=== PATIENT | male | born 1970 | race Caucasian/White ===

== ENCOUNTER 2020-06-21 03:46 | Observation (INO) | payer BC, SELFPAY ==
[2020-06-21] VITALS (8 sets, daily range): BP systolic 127–154; BP diastolic 70–93; PULSE 72–122; RESP 16–18; TEMP 36.7–37.1; O2SAT 95–99; BMI 20.2
[2020-06-21 04:40] LABS: Basophils # 0.1 10^3/uL (0.0-0.1); Basophils % 0.5 %; Eosinophils % 0.4 %; Hematocrit 52.7 % (42.0-52.0); Hemoglobin 17.5 g/dL (11.7-16.6); Lymphocytes # 2.1 10^3/uL (0.8-4.8); Mean Corpuscular HGB Conc 33.2 g/dL (30.0-36.0); Mean Corpuscular Hemoglobin 31.5 pg (28.0-34.0); Mean Platelet Volume 9.8 fL (7.4-10.4); Monocytes # 0.5 10^3/uL (0.2-0.9); Monocytes % 4.4 %; Neutrophils # 7.63 10^3/uL (1.8-7.7); Neutrophils % 74.1 %; Nucleated Red Blood Cells % 0 %; Platelet Count 310 10^3/cmm (130-400); Red Blood Count 5.55 10^6/uL (4.1-5.3); Red Cell Distribution Width 12.7 % (12.1-15.1); White Blood Count 10.3 10^3/uL (4.0-10.0)
[2020-06-21 04:48] LABS: Add Urine Microscopic? YES; Bilirubin Urine Neg (NEGATIVE); Blood Urine 2+ (Negative); Glucose Urine UA Norm (Normal); Ketones Urine 1+ (Negative); Leukocyte Esterase Urine Trace (Negative); Nitrate Urine Negative (Negative); Protein Urine 2+ (Negative); Specific Gravity, Urine 1.015 (1.005-1.030); Urine Appearance Clear (CLEAR); Urine Color Yellow (Yellow); Urobilinogen Urine Norm (Negative); pH Urine 5 (5-7)
[2020-06-21 04:51] LABS: Amphetamines Screen Urine Negative (Negative); Barbiturates Screen Urine Negative (Negative); Benzodiazepines Screen Urine Positive (Negative); Cocaine Screen Urine Negative (Negative); Opiate Screen Urine Negative (Negative); PCP Screen Urine Negative (Negative); THC Screen Urine Negative (Negative)
[2020-06-21 04:54] LABS: RBC Urine 0-4 /hpf (0-2); Squamous Epithelial Cell Urine 0-4 (0-5); WBC Urine 0-4 /hpf (0-5)
[2020-06-21 04:55] LABS: Add Urine Culture? No; Bacteria Urine TRACE; Hyaline Casts Urine 0-4; Mucus Urine TRACE
[2020-06-21 04:58] LABS: Alanine Aminotransferase 60 U/L (0-41); Albumin Level 5.2 g/dL (3.5-5.2); Alcohol Level 233 mg/dL (0-10); Alkaline Phosphatase 105 IU/L (40-130); Anion Gap 20.4 (5-19); Aspartate Amino Transferase 38 U/L (0-40); Blood Urea Nitrogen 16 mg/dL (6-20); Calcium 9.8 mg/dL (8.5-10.5); Carbon Dioxide 22 mmol/L (22-29); Chloride 100 mmol/L (98-107); Globulin 3.4 g/dL (1.3-4.6); Glomerular Filtration Rate 71.1 mL/min (90-130); Glucose 125 mg/dL (65-115); Osmolality Calculated 284 mOsm/kg (285-295); Potassium 4.4 mmol/L (3.5-5.1); Sodium 138 mmol/L (136-145); Total Bilirubin 0.3 mg/dL (0.15-1.2); Total Protein 8.6 g/dL (6.6-8.7)
--- NOTE | 2020-06-21 05:14 | XR_ITS ---
WS: [id number] EXAM: LEFT HAND: 3 VIEWS DATE OF EXAMINATION: 06/21/2020, 0544 hours COMPARISON: None. HISTORY: Patient is 50 years old with swelling the left hand. No known injury. FINDINGS: Bone density is normal in appearance. There is a fracture involving the base of the second metacarpal bone with suspected intra-articular involvement. No dislocation. Dorsal soft tissue swelling seen ov er the wrist. XR/XR hand LT min 3V* [id number] IMPRESSION: Fracture involving the base of the second metacarpal bone with suspected intra- articular extension. No dislocation at the carpometacarpal articulation. Dorsal soft tissue swelling.
[2020-06-21 05:19] LABS: Acetaminophen < 5.0 ug/mL (10-30); Salicylate < 0.3 mg/dL (3-10)
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
--- NOTE | 2020-06-21 06:42 | PC.NURSE ---
requesting hold on meds
--- NOTE | 2020-06-21 08:16 | P.HP_ITS ---
Providers/Chief Complaint Admitting Physician: Leroy Boo MD Chief Complaint: si/hi HPI [facility] History of Present Illness Catrachito Moran is a 50 year old male who presented to the emergency room via EMS and the [facility], after an episode that occurred after he and his family had been drinking, earlier in the day. He had gotten belligerent with his family members. According to the deputies, he threatened to assault his , and told the and the [employer] that he wanted to and she should just get a gun and kill him. He presented to the emergency room endorsing that he has no recollection of those issues. There was recently a reported medication change, according to his . He has a history of depression and anxiety but no previous admissions. He was intoxicated with an alcohol level in the 230?s. At some point, he had been swinging in the direction of his , and at inanimate objects, and broke a left metacarpal. He was admitted to the neuropsychiatric unit for definitive treatment of those issues. He reported that he has no recollection of what occurred but then, at times, that assertion was questionable because he would throw in things like he was forced into the ambulance, and would deny that certain things happened, in one breath, but then would say he has no recollection in another breath. He was very evasive in his answers and had a very lawyerly way of approaching things, speaking about ?allegedly this.? At times I would identify for him that something occurred, and he would say that he is not saying that it did or didn?t occur, at which time I would have to correct him and say that I am not asking you if it occurred, I am giving you an accounting of what people, who were sober, said occurred. He was very much demanding about leaving, but then when it was explained to him that we were evaluating to see if he would be leaving at all, he was very demanding about when that decision would be made. His was present in the waiting room; it was explained to him that to get a sense of what we were going to do, we would need to get some collateral information from her. His reports that he has had a shorter fuse and lower frustration tolerance, over the past weeks. She reports that they are in town to get her father?s affairs in order. Her father lives with them, and her mother had about a year ago. 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 She reports that they had split about two bottles of wine, between four of them, being her, her sister, her , and her father. But she noted that her father had only one glass out of those bottles. She reports that she had gone to bed and her sister and her , who are reportedly close, continued the conversation while she was in bed trying to wind down and was just kind of playing on her phone. Her sister noted that she was going to bed but that her was still kind of chattering, at which time she reached out to him and said why don?t you come to bed. She reports that as people were making the move to go to bed, she had gotten up and was moving through the room when he started acting very strange. At one point, she reports that he made a comment about her sister?s breasts, which he has never done anything like before, and her sister said that he had not done anything like that when they were sitting alone or any other time, in their lives. He started saying that their eyes were weird and asking them what was wrong with them. Then, at some point, he attempted to swing at his , maybe on multiple occasions. At one point, they had both grabbed him, the around the arm and the [id number] around his body, she reports, and they called for their father. As this continued she asked for her father to call EMS. At one point, the patient was on the ground, pounding the ground, walking on all fours, and saying bizarre things. The police reportedly arrived and this continued, and it was almost like she felt he got an awareness about what was going on and started saying the things about killing himself and having her kill him, and issues with getting a gun and doing something. She reports that there are guns on the property, but they are locked up in a safe; and the building that the guns are in is about a half mile from the main house and it is also locked up, and her dad is the only one that has a coker. The patient gave no real explanation for what happened and continued to deny that anything happened other than him being forcibly brought here and him not understating that. The had some concerns about this recent behavior change, and then this episode, and also wanting to talk to him about what happened and being fearful that if he just came back home that it could be a real problem if they did not have a chance to process it. We reviewed his medications and discussed the risks, benefits, and alternatives of continuing them. We also reviewed the fact that they were saying that he was on Ativan, but we were unable to identity dosing frequency etc. and the possibility of those things combined causing this behavior. He denied any increase in his baseline symptoms, that he has been in treatment for, for some time. He denied suicidal or homicidal thoughts, or anything of that nature. PSYCHIATRIC HISTORY: As above. He has had treatment for depression and anxiety for over twenty years, going back to treatment for depression and anxiety back when he was in his early twenties. He endorsed off and on treatment with different providers. He reported recent initiation of Ativan for overly anxious periods. He denies any inpatient hospitalizations and reports that, many times, his mental health treatment has been through primary care physicians. He reports that he made an appointment that it took him about a year to get. He would not really go into why he wanted the appointment then, only endorsing that at the time the appointment came the only reason he kept the appointment, with the psychiatrist, was that he waited so long to get the appointment. And now he has been seeing that person for about a year and a half. SUBSTANCE ABUSE HISTORY: He denies significant smoking behavior. He does endorse drinking alcohol regularly but not daily and not in large amounts, but he was vague about that. H e denies marijuana, cocaine, methamphetamine, or opiate use, and he denies benzodiazepine use that is not in keeping with the prescription. He denies ever being in a drug rehabilitation. He denies ever having a DUI. FAMILY HISTORY: He reports that both his parents have been hospitalized and been in treatment for mental health issues, but he denies addiction issues. He was unclear about the suicide attempts or completions. DEVELOPMENTAL HISTORY: He denies any issues with his or delivery. He reportedly learned to walk and talk and met developmental milestones on time. He denied speech therapy, learning support, emotional support, or special education classes, and it was [place] critical for him to have me understand that he was in gifted classes and he was a gifted student. PSYCHOSOCIAL HISTORY: He reports that his mother and father were together when he was born, and they stayed together until he was in his adolescence. He endorses that he was the only child they had to together, and he does have a half-sibling. He endorses that his childhood was fine; he denies any emotional, physical, or sexual abuse. He endorsed graduating from high school and going to college. He endorses being a heterosexual, with his longest relationship being the approximately sixteen years he has been with his . He has been twice and once. He has no biological children. He has never been in the . He has no significant christianity belief system. He endorses that the longest job he had was about eight years. 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 He reports he lives in a house with his and his [id number]. LEGAL HISTORY: He has never been to half-way and denies any significant legal problems. MEDICAL HISTORY: He has had back surgery on his cervical spine. Meds NPU Home Medications Medication Instructions Recorded Confirmed Last Taken Type bupropion HCl 300 mg PO DAILY 06/21/20 06/21/20 06/20/20 08:00 History 300 mg paroxetine HCl 40 mg PO DAILY 06/21/20 06/21/20 06/21/20 08:00 History 40 mg trazodone 100 mg PO QPM PRN 06/21/20 06/21/20 06/17/20 21:00 History 100 mg Allergies Allergy/AdvReac Type Severity Reaction Status Date / Time No Known Allergies Allergy Verified 06/21/20 03:59 Mental Status Exam MSE Comments: This is an overweight versus obese, white male, with limited dress, grooming, and eye contact. No abnormal movements, except for some psychomotor agitation. Semi-cooperative with exam in no acute distress. Speech was normal rate and volume. Mood described as irritated; affect congruent. Thought process, organized. Thought content: patient denied any suicidal or homicidal ideation, there were no delusions reported or noted, patient denied any auditory or visual hallucinations. Attention, concentration, and memory appear intact but none were formally tested. He is alert and oriented times three. Insight and judgment are limited. Impulse control is limited. Vitals/I&O/Wt Last Vital Signs Temp 98.2 F 06/21/20 13:45 Pulse 72 06/21/20 13:45 Resp 18 06/21/20 13:45 BP 154/70 06/21/20 13:45 Pulse Ox 99 06/21/20 13:45 Weight last 48 hrs Weight 65.771 kg Data NPU : 06/21/20 04:30 06/21/20 04:30 A&P Assessment and plan (1) Suicidal thoughts: Status: Acute (2) Major depression: Status: Acute (3) Anxiety: Status: Acute (4) Alcohol abuse: Status: Acute (5) Alcohol intoxication: Status: Acute (6) Metacarpal bone fracture: Status: Acute Additional A&P Information This is a 50 year old, white male, with a long history of anxiety, depression, and some history of alcohol use that has, at times, been excessive per his ?s report, but that he has recently been better at managing, who presents after being intoxicated and getting violent, and presents on a 96-hour hold. Continue current medication, including the CIWA protocol. Encourage individual, group, and milieu therapy. Continue q-15 minute checks for safety. Recommend sober living treatment at the highest level of care to which he is willing to commit. Involuntary Hold Information 96 Hour Hold: 96 Hour Involuntary Admission: Yes 96 Hour Hold Ending Date: 06/27/20 96 Hour Hold Ending Time: 00:01 Attestations NPU Medical Necessity Statement*: Inpatient hospitalization is medically necessary and the clinically appropriate intervention at this time. We will monitor medications and make adjustments as indicated. Patient will be in the hospital for observation purposes initially; we will decide whether to keep him tomorrow based on conversation with his after she visits him during visitation. Possible discharge tomorrow, but depending on how he is doing and collateral information, we could change him to inpatient status. Coding Level of Care Code Acute Paving Machine Operator for Naz Henriquez Diagnoses Suicidal thoughts R45.851 Major depression F32.9 Anxiety F41.9 Alcohol abuse F10.10 Alcohol intoxication F10.929 Metacarpal bone fracture S60.015F
--- NOTE | 2020-06-21 10:10 | PC.NURSE ---
1008- Dr Boo called regarding pt agitation during transport to [facility]. Pt states he is not staying, no one told him he would be admitted. Pt wants to leave AMA. Per Dr Boo, he will place pt on 96hr hold.
--- NOTE | 2020-06-21 10:19 | PC.NURSE ---
At 1000 when attempting to take patient to admitting unit after Psychiatrist Rajeev spoke to patient earlier about admission and report was called to the admitting unit. Patient stated no one informed him of being admitted, that he was not staying, and wanted to leave. Rajeev was called pertaining situation and stated he would place a 96 hour hold on the patient
[2020-06-21] MEDS: PARoxetine 20 mg Tablet 40 MG PO (11:58)
[2020-06-21] MEDS: buPROPion XL (24 HR) 300 mg Tablet PO (11:58)
--- NOTE | 2020-06-21 21:27 | PC.NURSE ---
Left wrist splint is intact. Fingers are warm with adequate circulation.
[2020-06-22 06:00] VITALS: BP 106/63; PULSE 70; RESP 16; TEMP 36.6; O2SAT 96
[2020-06-22] MEDS: PARoxetine 20 mg Tablet 40 MG PO (09:36)
[2020-06-22] MEDS: buPROPion XL (24 HR) 300 mg Tablet PO (09:36)
--- NOTE | 2020-06-22 11:42 | PM.NDC ---
Diagnoses at Discharge Discharge Diagnosis (1) Suicidal thoughts: Status: Resolved (2) Major depression: Status: Acute (3) Anxiety: Status: Acute (4) Alcohol abuse: Status: Acute (5) Alcohol intoxication: Status: Resolved (6) Metacarpal bone fracture: Status: Acute Reason for Visit Reason for Visit: si/hi Brief History: History of Present Illness Catrachito Moran is a 50 year old male who [facility] after an episode that occurred after he and his family had been drinking, earlier in the day. He had gotten belligerent with his family members. According to the deputies, he threatened to assault his , and told the and the Garbage Worker that he wanted to and she should just get a gun and kill him. He presented to the emergency room endorsing that he has no recollection of those issues. There was recently a reported medication change, according to his . He has a history of depression and anxiety but no previous admissions. He was intoxicated with an alcohol level in the 230?s. At some point, he had been swinging in the direction of his , and at inanimate objects, and broke a left metacarpal. He was admitted to the neuropsychiatric unit for definitive treatment of those issues. He reported that he has no recollection of what occurred but then, at times, that assertion was questionable because he would throw in things like he was forced into the ambulance, and would deny that certain things happened, in one breath, but then would say he has no recollection in another breath. He was very evasive in his answers and had a very lawyerly way of approaching things, speaking about ?allegedly this.? At times I would identify for him that something occurred, and he would say that he is not saying that it did or didn?t occur, at which time I would have to correct him and say that I am not asking you if it occurred, I am giving you an accounting of what people, who were sober, said occurred. He was very much demanding about leaving, but then when it was explained to him that we were evaluating to see if he would be leaving at all, he was very demanding about when that decision would be made. His was present in the waiting room; it was explained to him that to get a sense of what we were going to do, we would need to get some collateral information from her. His reports that he has had a shorter fuse and lower frustration tolerance, over the past weeks. She reports that they are in town to get her father?s affairs in order. Her father lives with them, and her mother had about a year ago. 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 She reports that they had split about two bottles of wine, between four of them, being her, her sister, her , and her father. But she noted that her father had only one glass out of those bottles. She reports that she had gone to bed and her sister and her , who are reportedly close, continued the conversation while she was in bed trying to wind down and was just kind of playing on her phone. Her sister noted that she was going to bed but that her was still kind of chattering, at which time she reached out to him and said why don?t you come to bed. She reports that as people were making the move to go to bed, she had gotten up and was moving through the room when he started acting very strange. At one point, she reports that he made a comment about her sister?s breasts, which he has never done anything like before, and her sister said that he had not done anything like that when they were sitting alone or any other time, in their lives. He started saying that their eyes were weird and asking them what was wrong with them. Then, at some point, he attempted to swing at his , maybe on multiple occasions. At one point, they had both grabbed him, the around the arm and the [id number] around his body, she reports, and they called for their father. As this continued she asked for her father to call EMS. At one point, the patient was on the ground, pounding the ground, walking on all fours, and saying bizarre things. The police reportedly arrived and this continued, and it was almost like she felt he got an awareness about what was going on and started saying the things about killing himself and having her kill him, and issues with getting a gun and doing something. She reports that there are guns on the property, but they are locked up in a safe; and the building that the guns are in is about a half mile from the main house and it is also locked up, and her dad is the only one that has a coker. The patient gave no real explanation for what happened and continued to deny that anything happened other than him being forcibly brought here and him not understating that. The had some concerns about this recent behavior change, and then this episode, and also wanting to talk to him about what happened and being fearful that if he just came back home that it could be a real problem if they did not have a chance to process it. We reviewed his medications and discussed the risks, benefits, and alternatives of continuing them. We also reviewed the fact that they were saying that he was on Ativan, but we were unable to identity dosing frequency etc. and the possibility of those things combined causing this behavior. He denied any increase in his baseline symptoms, that he has been in treatment for, for some time. He denied suicidal or homicidal thoughts, or anything of that nature. PSYCHIATRIC HISTORY: As above. He has had treatment for depression and anxiety for over twenty years, going back to treatment for depression and anxiety back when he was in his early twenties. He endorsed off and on treatment with different providers. He reported recent initiation of Ativan for overly anxious periods. He denies any inpatient hospitalizations and reports that, many times, his mental health treatment has been through primary care physicians. He reports that he made an appointment that it took him about a year to get. He would not really go into why he wanted the appointment then, only endorsing that at the time the appointment came the only reason he kept the appointment, with the psychiatrist, was that he waited so long to get the appointment. And now he has been seeing that person for about a year and a half. SUBSTANCE ABUSE HISTORY: He denies significant smoking behavior. He does endorse drinking alcohol regularly but not daily and not in large amounts, but he was vague about that. He denies marijuana, cocaine, methamphetamine, or opiate use, and he denies benzodiazepine use that is not in keeping with the prescription. He denies ever being in a drug rehabilitation. He denies ever having a DUI. FAMILY HISTORY: He reports that both his parents have been hospitalized and been in treatment for mental health issues, but he denies addiction issues. He was unclear about the suicide attempts or completions. DEVELOPMENTAL HISTORY: He denies any issues with his or delivery. He reportedly learned to walk and talk and met developmental milestones on time. He denied speech therapy, learning support, emotional support, or special education classes, and it was very critical for him to have me understand that he was in gifted classes and he was a gifted student. PSYCHOSOCIAL HISTORY: He reports that his mother and father were together when he was born, and they stayed together until he was in his adolescence. He endorses that he was the only child they had to together, and he does have a half-sibling. He endorses that his childhood was fine; he denies any emotional, physical, or sexual abuse. He endorsed graduating from high school and going to college. He endorses being a heterosexual, with his longest relationship being the approximately sixteen years he has been with his . He has been twice and once. He has no biological children. He has never been in the . He has no significant jainism belief system. He endorses that the longest job he had was about eight years. 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 He reports he lives in a house with his and his [id number]. LEGAL HISTORY: He has never been to correction and denies any significant legal problems. MEDICAL HISTORY: He has had back surgery on his cervical spine. Hospital Course Hospital Course The patient presented to the emergency room after he was brought in by EMS and the Visual Coordinator?s department, after he had been drinking with his family and got belligerent. He has a history of depression and anxiety and was making suicidal comments during the altercation. He was intoxicated and ultimately was admitted to the neuropsychiatric unit for definitive treatment of those issues, on a 96-hour hold. He had an opportunity to speak to his , both on the phone and in person, regarding the issues that occurred, and they were able to put together a positive plan for how they would manage his drinking, these behaviors, and the fallout, once they get back to [place], and also what he needs to do now to make sure that his father in law and sister in law are still in his corner. He acclimated to the individual, group, and milieu therapies provided. We continued his outpatient medications, and instituted a [facility] protocol to make sure he had a safe withdrawal, and there were no complications with his withdrawal. He had no issues with his mental status, at the time of discharge. No changes were made to his medications and he made significant improvement from the time he presented to the hospital. During the hospitalization, the patient had routine laboratory studies which were within normal limits, except for a few outliers. Additionally, the patient had a general medical evaluation which was within normal limits and revealed no new acute processes, except for his metacarpal fracture which was treated in the emergency room. Discharge Summary At the time of discharge the patient denied all lethality, was absent psychosis, and mood and anxiety were well managed. The patient endorsed a plan to avoid all drugs of abuse and to follow-up with outpatient services, as recommended. The patient was evaluated and deemed to be absent credible lethality, and had achieved the maximum benefit from an inpatient hospitalization, and so he was discharged. Involuntary Hold Information 96 Hour Hold: 96 Hour Involuntary Admission: Yes 96 Hour Hold Ending Date: 06/27/20 96 Hour Hold Ending Time: 00:01 Mental Status Exam MSE Comments: This is an overweight versus obese, white male, with hospital scrubs, grooming, and eye contact. No abnormal movements. Cooperative with exam in no acute distress. Speech was normal rate and volume. Mood described as much better; affect congruent. Thought process, organized. Thought content: patient denied any suicidal or homicidal ideation, there were no delusions reported or noted, patient denied any auditory or visual hallucinations. Attention, concentration, and memory appear intact but none were formally tested. He is alert and oriented times three. Insight and judgment are improving. Impulse control is improving. Discharge Data Data Completed and Pending: Completed Studies During Hospitalization Category Date Time Status XR hand LT min 3V * [id number] Stat Exams 06/21/20 05:14 Completed Vitals: Last Vital Signs Temp 97.9 F 06/22/20 06:00 Pulse 70 06/22/20 06:00 Resp 16 06/22/20 06:00 BP 106/63 06/22/20 06:00 Pulse Ox 96 06/22/20 06:00 Discharge Plan Discharge Patient Disposition: Home Condition: Stable Prescriptions: Continued bupropion HCl 300 mg tablet extended release 24 hr 300 mg PO DAILY RF: 0 paroxetine HCl 40 mg tablet 40 mg PO DAILY RF: 0 trazodone 100 mg tablet 100 mg PO QPM PRN (Reason: Insomnia) RF: 0 Discharge Orders: Discharge Order (Routine); Ordered 06/22/20 Ordered By: Leroy Boo Discharge Diet: Regular Discharge Activity: Resume usual activity Discharge Date/Time: 06/22/20 12:42 Discharge Attestations NPU Time Spent in Discharge Care*: greater than 30 min Specific Discharge Activities: Specific discharge activities: educating patient, educating and/or supporting family/caregiver, discussing with case coordinator/social workers/dc planners, documenting/other paperwork and evaluating patient/reviewing data Coding Level of Care Code Acute [facility] [employer] [facility] Diagnoses Suicidal thoughts R45.851 Major depression F32.9 Anxiety F41.9 Alcohol abuse F10.10 Alcohol intoxication F10.929 Metacarpal bone fracture S62.309A
[2020-06-22 11:51] VITALS: BP 106/63; PULSE 70; RESP 16; TEMP 36.6; O2SAT 96
--- NOTE | 2020-06-22 12:08 | PC.NURSE ---
PT NOTE; ASSESSMENT OF CLIENTS LEFT HAND CLIENTS HAS GOOD CAPILLARY REFILL IN ALL [id number] OF THE LEFT HAND SOME SWELLING AND BRUISES CONSISTENT WITH A FRACTURE INVOLVING THE BASE OF THE SECOND METACARPAL BONE. NO PAIN ACKNOWELEDGE UPON LIGHT PAPITATION OF THE TISSUE ABOVE THE BONE. CLIENT HAND REWRAPPED AND SPLINTED.
--- NOTE | 2020-06-24 09:04 | DCPLANNER ---
manager corporate had message to schedule a follow up appointment for patient with ortho. manager corporate called the ortho clinic, spoke with Pat, gave clinic patients information. manager corporate was told that patients information would be printed and reviewed. Clinic will call patient with appointment information.
--- NOTE | 2020-07-09 10:15 | DCPLANNER ---
late entry - pillowcase maker spoke with patient, he stated that he does not live in the area and does not need a follow up appointment at this time.
== END 2020-06-22 12:42 | disposition home or self-care (01) ==
LOC: ER 07:30 → NP 09:37
PROVIDERS: Emergency Medicine; Admitting Provider Psychiatry & Neurology Psychiatry; Visit Provider Psychiatry & Neurology Psychiatry
DX: R45.851 Suicidal ideations (principal); F32.9 Major depressive disorder, single episode, unspecified; F41.9 Anxiety disorder, unspecified; F10.129 Alcohol abuse with intoxication, unspecified; Y90.0 Blood alcohol level of less than 20 mg/100 ml; S62.341A Nondisplaced fracture of base of second metacarpal bone, left hand, initial encounter for closed fracture; W22.8XXA Striking against or struck by other objects, initial encounter
CPT/HCPCS: 12345; 73130; 80053; 80306; 80307; 81001; 85025; 96372; 99282; 99285; G0378